=== PATIENT | male | born 1955 | race Caucasian/White ===

== ENCOUNTER → 2022-07-01 | Day surgery (SDC) | payer MEDICARE, OTHER ==
[~2022-07-01] MED LIST: Acetaminophen 325 MG Tab ONE; Ketorolac 30 MG/ML SDV ONE; Lactated Ringers 0 ML ONE; Lidocaine 1% 4 ML ONE; Midazolam 1 MG/ML 2 ML SDV ONE; Morphine 8 MG, EPINEPHrine 0.3 MG, Cefuroxime 750 MG, Ketorolac 30 MG, Sodium Chloride ... ONE; Ondansetron 4 MG/2 ML SDV ONE; Phenylephrine HCl In 0.9% NaCl 1 MG/10 ML Vial ONE; Pregabalin 25 MG Cap ONE; Propofol 200 MG/20 ML SDV ONE; Vancomycin 1 GM SDV ONE; ceFAZolin 2 GM Vial ONE; ePHEDrine 50 MG/ML SDV ONE; fentaNYL 100 MCG/2 ML SDV ONE; oxyCODONE ER 10 MG TAB.ER ONE
== END ==
LOC: JD.SDS 06:00
PROVIDERS: ATTEND Orthopaedic Surgery
DX: M16.12 Unilateral primary osteoarthritis, left hip (principal); M91.12 Juvenile osteochondrosis of head of femur [Legg-Calve-Perthes], left leg; R73.9 Hyperglycemia, unspecified; I10 Essential (primary) hypertension; E78.5 Hyperlipidemia, unspecified; D62 Acute posthemorrhagic anemia; F17.210 Nicotine dependence, cigarettes, uncomplicated; Z79.899 Other long term (current) drug therapy; Z98.890 Other specified postprocedural states; Z79.82 Long term (current) use of aspirin
CPT/HCPCS: 0055T; 27130; 36415; 73501; 86850; 86900; 86901; 97110; 97116; 97161; C1713; C1776; J0171; J0690; J0697; J1885; J2250; J2270; J2405; J2704; J3010; J3370; 01214; J7120